=== PATIENT | female | born 1940 | race African-American/Black ===

== ENCOUNTER 2017-03-15 15:09 | Observation (INO) | payer MEDICARE, MEDICAID ==
[2017-03-15 15:48] LABS: #Basophils 0.1 thou/uL (0.0-0.2); #Eosinphils 0.1 thou/uL (0.0-0.7); #Lymphocytes 3.3 thou/uL (1.20-3.40); #Monocytes 0.7 thou/uL (0.11-0.59); #Neutrophils 5.3 thou/uL (1.40-6.50); %Eosinophils 1.5 % (0.0-10.0); %Lymphocytes 34.2 % (21.0-51.0); %Monocytes 7.4 % (0.0-10.0); Hematocrit 41.7 % (36.0-47.0); Mean Platelet Volume 7.8 fL (7.4-10.4); Red Blood Cell (RBC) Count 5.05 mill/uL (4.20-5.40); White Blood Cell (WBC) Count 9.5 thou/uL (4.8-10.8)
[2017-03-15 16:11] LABS: ALT (SGPT) 16 U/L (8-55); AST (SGOT) 20 U/L (5-34); Alkaline Phosphatase 85 U/L (40-150); Anion Gap 12 mmol/L (10-20); BUN (Urea Nitrogen) 19 mg/dL (9.8-20.1); Bilirubin, Total 0.5 mg/dL (0.2-1.2); CK (CPK) 133 U/L (29-168); Calc. Creatinine Clearance 0 mL/min (70-130); Calcium 9.7 mg/dL (7.8-10.44); Carbon Dioxide 25 mmol/L (23-31); Chloride 103 mmol/L (98-107); Estimated GFR-MDRD 79; Globulin 3.7 g/dL (2.4-3.5); Protein, Total 7.6 g/dL (6.0-8.3)
[2017-03-15] MEDS ORDERED: Nitroglycerin 0.4 MG TAB (25 Tab Bottle) ONE (16:11)
[2017-03-15 16:14] LABS: Troponin I Less than 0.010 ng/mL (< 0.028)
--- NOTE | 2017-03-15 16:24 | RAD ---
AP CHEST: Indication: Chronic left hip pain and chest pain. FINDINGS: There is stable elevation of the right hemidiaphragm. There is stable cardiomegaly. No confluent air space opacity or pleural effusion noted. Pulmonary vasculature is within normal limits. No acute oss eous abnormality is evident. IMPRESSION: No acute cardiopulmonary abnormality. Stable changes as above. POS: [facility]
[2017-03-15] MEDS ORDERED: ISOVUE-370 76%-LOCM 1 ML ONE (16:40)
[2017-03-15] MEDS ORDERED: Mag-Al 1200 mg/1200 mg/30 ML UDCUP PO PRN (16:43)
[2017-03-15] MEDS ORDERED: Ondansetron HCl/PF 4 MG/2 ML Vial ONE (16:43)
[2017-03-15] MEDS ORDERED: Nitroglycerin 0.4 MG TAB (25 Tab Bottle) SL PRN (16:43)
[2017-03-15] MEDS ORDERED: Ondansetron HCl/PF 4 MG/2 ML Vial IVP PRN (16:43)
[2017-03-15] MEDS ORDERED: Milk Of Magnesia 30 ML UDCUP PO PRN (16:43)
[2017-03-15] MEDS ORDERED: Bisacodyl 5 MG TAB PO PRN ×2 (16:43)
[2017-03-15] MEDS ORDERED: HYDROcodone/Acetaminophen 5/325 mg Tablet PO PRN (16:43)
[2017-03-15] MEDS ORDERED: cloNIDine HCl 0.1 MG TAB PO PRN (16:43)
[2017-03-15] MEDS ORDERED: Loratadine 10 MG TAB PO PRN (16:43)
[2017-03-15] MEDS ORDERED: Diabetic Tussin 200 MG/10 ML UDCUP PO PRN (16:43)
[2017-03-15] MEDS ORDERED: Benzonatate 100 MG CAP PO PRN (16:43)
[2017-03-15] MEDS ORDERED: Acetaminophen 325 MG TAB PO PRN (16:43)
[2017-03-15] MEDS ORDERED: Metoprolol Tartrate 25 MG TAB ONE (16:43)
[2017-03-15] MEDS ORDERED: Calcium Carbonate 500 MG ChewTAB PO PRN (16:43)
[2017-03-15] MEDS ORDERED: Senokot 8.6 MG TAB PO PRN ×2 (16:43)
[2017-03-15] MEDS ORDERED: Cyclobenzaprine 10 MG TAB PO PRN (18:11)
[2017-03-15] MEDS ORDERED: Aspirin 325 MG TAB PO SCH (18:30)
--- NOTE | 2017-03-15 19:03 | HP ---
PRIMARY CARE PHYSICIAN: Vanesa Espitia MD CHIEF COMPLAINT: Chest pain and lower left leg pain. HISTORY OF PRESENT ILLNESS: Ms. Weber is a 77-year-old -Spanish female with past medical history of hypertension, who presented to the ER with the above-mentioned complaints. History is ma inly obtained with the patient herself. ER physician called me to admit her for evaluation of chest pain, but the patient's main complaint is that of worsening of chronic left leg pain. According to Ms. Weber, she has severe worsening of her left leg pain today and felt that the pain is starting in her lower back going down her leg associated with left leg weakness. She also repor gia that this pain seemed to be going up on the left side of her chest under her left arm. She pres ented to the ER with this symptoms. A chest x-ray was done, which was unremarkable. Cardiac enzyme s were normal. The patient reports that she has been told by Orthopedics, Dr. Duque about 2 weeks ago that she brito s \\\\"bone on bone\\\\" in the hip and needs hip replacement. She is scheduled for hip replacement on the left side in June. She has had a hip x-ray done about 2 weeks ago. She has been taking marquez xicam and tramadol to some benefit, but the pain got really worse today. She denies any other recen t illnesses. She denies any fever, chills, or cough. She denies any nausea, vomiting, diarrhea, or abdominal pain. With regards to her chest pain, she denies any shortness of breath or palpitations . She is currently chest pain free. She has not tried any medications to help with the pain, speci fically her chest pain. She had normal cardiac stress test and transthoracic echocardiogram done in 10/2014. She is now being admitted for a variety of symptoms, but her main concern at this time is her left hip pain. PAST MEDICAL HISTORY: 1. Hypertension. 2. Gout. 3. Restrictive lung disease. 4. Osteoarthritis. 5. Spinal stenosis. 6. Obesity. 7. Diverticulosis. PAST SURGICAL HISTORY: Cholecystectomy. ALLERGIES: No known medication allergies. CURRENT MEDICATIONS: The patient recently finished a course of prednisone tapering dose. Otherwise , she takes metoprolol, Norvasc, valsartan, and meloxicam. Medication dosages need to be confirmed. FAMILY HISTORY: Significant for diabetes mellitus. SOCIAL HISTORY: She is and has 2 children. She is retired and has no history of drug, tob acco or alcohol abuse. Lives with her family. REVIEW OF SYSTEMS: The following complete review of systems was negative, unless otherwise mentione d in the HPI or below: Constitutional: Weight loss or gain, ability to conduct usual activities. Skin: Rash, itching. Eyes: Double vision, pain. ENT/Mouth: Nose bleeding, neck stiffness, pain, tenderness. Cardiovascular: Palpitations, dyspnea on exertion, orthopnea. Respiratory: Shortness of breath, wheezing, cough, hemoptysis, fever or night sweats. Gastrointestinal: Poor appetite, abdominal pain, heartburn, nausea, vomiting, constipation, or diar rios. Genitourinary: Urgency, frequency, dysuria, nocturia. Musculoskeletal: Pain, swelling. Neurologic/Psychiatric: Anxiety, depression. Allergy/Immunologic: Skin rash, bleeding tendency. It is negative except for those mentioned in the history and physical. LABORATORY EXAMINATION: Her CBC is unremarkable. Serum chemistry showed D-dimer elevated at 0.73, otherwise unremarkable. Cardiac enzymes normal. Chest x-ray by my review has no evidence of acute cardiopulmonary abnormality. A 12-lead EKG shows no acute ST or T-wave changes. PHYSICAL EXAMINATION: VITAL SIGNS: She is hemodynamically stable. Blood pressure 144/74, saturating 95% on room air, and heart rate 74. GENERAL: No acute distress, awake, alert, and oriented x3. She is pretty uncomfortable and winces in pain and is clutching her left leg mainly on the thigh laterally. Otherwise, no acute distress. HEENT: Mucous membrane is moist and pink. No oropharyngeal exudate or erythema. Head is normoceph alic and atraumatic. Pupils are equal, reactive to light and accommodation. Extraocular movements are intact. NECK: Supple without any JVD or bruit. CHEST: Clear to auscultation without any wheezing, rales or rhonchi. CARDIOVASCULAR: Regular rate and rhythm is regular without any murmur, rubs or gallops. ABDOMEN: Soft, nontender, and nondistended, positive bowel sounds. EXTREMITIES: Free of any cyanosis, clubbing, or edema. NEUROLOGIC: Nonfocal. She is able to lift her left leg with passive extension without any hip or b ack pain. Sensation is intact. Muscle strength is at least 3/5 in left leg. SKIN: Free of any rashes or bruises. Feels warm and dry to touch. IMPRESSION AND PLAN: 1. Chest pain. I highly doubt that the patient had chest pain per se. She had some referred pain going to a side of her abdomen under her left arm. However, given her history of hypertension, she will be admitted on telemetry unit. We will continue to do serial cardiac enzymes. Given somewhat elevated D-dimer: We will do a CT angio to rule out pulmonary embolism, but the clinical probabilit y for the same is very low at this time. She will be treated with daily aspirin and we will restart her home medications of beta eloise and ARBs. 2. Left leg pain. This is rather chronic for the patient. She will continue to follow with Orthop edics as an outpatient for hip replacement. We will obtain an MRI of the thoracic and lumbar spine to rule out spinal cord compression. Most likely her symptoms are related to radiculopathy. I will start on muscle relaxant, IV narcotics or sedatives at this time. 3. Hypertension, currently well controlled. We will resume her home medications once the dosages a re confirmed. 4. Restrictive lung disease. Continue nebulizers as needed. She is currently asymptomatic with re gards to that. 5. Osteoarthritis. I have instructed her to stop taking the meloxicam as she has been using quite a lot of it. She will continue to take tramadol at home and follow up with her primary care jass lobato. 6. Deep venous thrombosis and gastrointestinal prophylaxis. DISPOSITION: The patient will be admitted to telemetry unit for chest pain workup. Estimated lengt h of stay at this time is less than 2 midnights. Further management will depend upon her clinical c ourse.
[2017-03-15 20:09] LABS: Troponin I Less than 0.010 ng/mL (< 0.028)
--- NOTE | 2017-03-15 22:04 | CT ---
CT ANGIO CHEST INCLUDING 3D RENDERIN03/15/17 HISTORY: 77-year-old female with chest pain primarily left sided radiating to left breast with shortness of b reath as well as elevated D-dimer. There is cardiomegaly. Three vessel coronary artery calcific changes are noted. No pleural effusion or pericardial effusion. There is moderate motion artifact with suboptimal imaging of the more perip heral pulmonary arteries, particularly in the lower lung zones. No significant CT evidence for acute PE. The visualized upper abdomen is unremarkable. There is some bilateral vascular congestion as we ll as some minimal interstitial change and a somewhat mosaic appearance to the lungs. There may well be some component of mild interstitial edema. IMPRESSION: Cardiomegaly with vascular congestion and a somewhat mosaic appearance of the lungs with possible mi ld edema. No significant CT evidence for acute pulmonary embolism. Three vessel coronary artery calc ific disease. The distal branches of the pulmonary arteries, particularly in the mid and lower porti ons of the lung are less than optimally imaged because of motion artifact. POS: [facility]
[2017-03-15] MEDS: traMADol HCl 50 MG TAB PO PRN (22:43)
[2017-03-15 22:48] VITALS: BMI 38.5
[2017-03-15 23:03] LABS: Troponin I Less than 0.010 ng/mL (< 0.028)
[2017-03-16 05:18] LABS: #Basophils 0.1 thou/uL (0.0-0.2); #Eosinphils 0.2 thou/uL (0.0-0.7); #Lymphocytes 3.6 thou/uL (1.20-3.40); #Monocytes 0.6 thou/uL (0.11-0.59); #Neutrophils 5.1 thou/uL (1.40-6.50); %Basophils 0.9 % (0.0-1.0); %Lymphocytes 37.7 % (21.0-51.0); %Monocytes 5.9 % (0.0-10.0); Hematocrit 40.7 % (36.0-47.0); Mean Platelet Volume 7.7 fL (7.4-10.4); Red Blood Cell (RBC) Count 4.89 mill/uL (4.20-5.40); White Blood Cell (WBC) Count 9.4 thou/uL (4.8-10.8)
[2017-03-16 05:41] LABS: Anion Gap 11 mmol/L (10-20); BUN (Urea Nitrogen) 16 mg/dL (9.8-20.1); Calc. Creatinine Clearance 86 mL/min (70-130); Calcium 9.2 mg/dL (7.8-10.44); Carbon Dioxide 28 mmol/L (23-31); Chloride 102 mmol/L (98-107); Estimated GFR-MDRD 76
[2017-03-16 07:50] LABS: Bilirubin Negative (Negative); Blood, Urine Negative (Negative); Glucose, Urine (Dipstick) Negative (Negative); Ketone, Urine Negative (Negative); Nitrite Negative (Negative); Protein, Urine (Dipstick) Negative (Neg-Trace); Urobilinogen 0.2 mg/dL (0.2-1.0)
[2017-03-16 07:53] LABS: Bacteria/HPF Rare-Few HPF (None Seen); Hyaline Casts/LPF 0-3 HYALINE CAST LPF (0-3 Hyaline); RBC/HPF 0-3 HPF (0-3); Squamous Epithelial 0-3 HPF (0-3); WBC/HPF 0-3 HPF (0-3)
[2017-03-16] MEDS ORDERED: Aspirin 325 MG TAB PO SCH ×2 (08:00→09:00)
[2017-03-16] MEDS ORDERED: Non-Formulary Item 1 EACH (Losartan/Hydrochlorothiazide [Losartan-Hctz 100-12.5 Mg Tab] 1 PO SCH (09:00)
[2017-03-16] MEDS ORDERED: Hydrochlorothiazide 25 MG TAB PO SCH (09:00)
[2017-03-16] MEDS ORDERED: predniSONE 5 MG TAB PO SCH (09:00)
[2017-03-16] MEDS ORDERED: Enoxaparin Sodium 40 MG/0.4 ML SYRINGE SC SCH (09:00)
[2017-03-16] MEDS ORDERED: Losartan Potassium 25 MG TAB PO SCH (09:00)
[2017-03-16] MEDS ORDERED: FLU VACC TS2017-18 (>65YR) 0.5 ML SYRINGE IM ONE (09:00)
[2017-03-16] MEDS ORDERED: Non-Formulary Item 1 EACH (Prednisone [Prednisone] 5 MG) PO SCH (09:00)
[2017-03-16] MEDS: traMADol HCl 50 MG TAB PO PRN (10:48)
[2017-03-16 12:59] VITALS: TEMP 98.2
--- NOTE | 2017-03-16 13:34 | MRI ---
MRI OF THE LUMBAR SPINE WITHOUT IV CONTRAST: INDICATIONS: Left leg pain and weakness. COMPARISON: No radiographic or MR comparisons are available. TECHNIQUE: Multiplanar, multisequence MR images were obtained of the lumbar spine without IV contrast. FINDINGS: Bone marrow signal intensity appears within normal limits. There is grade 1 anterolisthesis of the expected L5 on S1 and L4 on L5 levels. The conus seems to terminate at approximately T12-L1. There is slight grade 1 anterolisthesis also present at L3 on L4. The visualized retroperitoneum and prevertebral soft tissues appear within normal limits. L5-S1: There is a broad-based bulge with severe facet joint degenerative change and loss of disk sp vernell height inducing moderate to severe bilateral neural foraminal narrowing. There is also mild venecia tral canal narrowing at this level. A broad-based bulge and facet hypertrophy does induce moderate to severe bilateral lateral recess narrowing with potential for impingement of the traversing S1 ner ve roots. L4-L5: There is severe facet joint degenerative change, grade 1 anterolisthesis, a broad-based pseu do bulge, and ligamentum flavum hypertrophy inducing severe central canal narrowing with moderate to severe neural foraminal narrowing, right greater than left. L3-L4: There is severe facet joint degenerative change, a broad-based disk bulge, and ligamentum fl avum hypertrophy inducing moderate central canal narrowing with moderate to severe right and moderat e left neural foraminal narrowing. L2-L3: There is a broad-based bulge with severe bilateral facet joint degenerative change producing mild central canal narrowing with moderate to severe right and moderate left neural foraminal narro wing. L1-L2: There is a broad-based bulge and facet joint degenerative change inducing mild bilateral waldo ral foraminal narrowing. T12-L1: There is a broad-based disk osteophyte complex causing mild bilateral neural foraminal narr owing. IMPRESSION: Severe multilevel spondylosis of the lumbar spine with multilevel central canal and neural foraminal narrowing, as detailed above. POS: [facility]
--- NOTE | 2017-03-16 13:43 | MRI ---
MRI OF THE THORACIC SPINE WITHOUT CONTRAST: Date: 03/16/17 INDICATION: Left leg pain and weakness. COMPARISON: Prior CT of the thorax dated 03/15/17. FINDINGS: There is a bony hemangioma within a T4 vertebral level. There are Modic end plate degenerative kwong es seen at T12-L1. No acute fracture or subluxation is evident. There are mild multilevel disc bulge s. There is a small broad based disc bulge at T1-T2, T2-T3, and T3-T4. Mild disc bulges are seen at T5-6, T6-7, T8-9, and T9-T10. Mild side bulges are seen at T11-T12 and T10-T11. No appreciable centr al canal or neural foraminal narrowing is evident. IMPRESSION: Multilevel spondylosis of the thoracic spine without appreciable central canal or neural foraminal n arrowing. POS: [facility]
[2017-03-16 14:06] VITALS: BP 128/60
--- NOTE | 2017-03-16 16:10 | DIS ---
DATE OF ADMISSION: 03/15/2017 DATE OF DISCHARGE: 03/16/2017 CONDITION AT THE TIME OF DISCHARGE: Stable and improved. PRIMARY CARE PHYSICIAN: Vanesa Espitia MD DISCHARGE DIAGNOSES: 1. Lumbar radiculopathy along with left hip osteoarthritis leading to acute worsening of chronic le ft hip pain. 2. Radiation of the pain to left side of the chest, acute coronary syndrome ruled out. 3. History of hypertension. PROCEDURES DONE IN THE HOSPITAL: Include, 1. CT angio of the thorax, which is negative for any pulmonary embolism. She does not have any pat dence of infiltrate or effusion nor edema. 2. Lumbar and thoracic spinal MRIs. Her lumbar spinal MRI shows severe degenerative changes withou t any significant spinal cord compression. She has multilevel central canal neuroforaminal narrowin g and in the thoracic spinal MRI, the changes are less pronounced. DISCHARGE MEDICATIONS: Resume home medications as follows: Prednisone 5 mg daily, losartan/hydroch lorothiazide 100/12.5 mg daily, isosorbide 30 mg daily, tramadol as needed, aspirin 81 mg daily, aml odipine 10 mg daily, and meloxicam as needed. I have encouraged the patient not to overuse the marquez xicam and discuss this further with her primary care physician. ADMISSION HISTORY: Ms. Weber is a pleasant 77-year-old -English female with past medical history of hypertension and severe left hip osteoarthritis, who was scheduled for hip replacement in June, presented to the ER with acute worsening of her left hip pain and inability to move it and walk around freely. She had some radiation of this pain to the left side of her chest laterally an d for this reason, I was called for admission to rule out ACS. She was hemodynamically stable at th e time of presentation and was admitted under observation to the telemetry unit for the same reason. Please see admission history and physical for further details. Upon presentation, her D-dimer was elevated to 0.73. For this reason, she underwent a CT angio to rule out pulmonary embolism and it was negative for same. HOSPITAL COURSE: The patient was seen by physical therapist and had improvement in her symptoms wit hout any significant intervention. Lumbar and thoracic spinal MRI was done to rule out spinal cord compression or nerve compression and was negative for same. She does have multilevel neuroforaminal narrowing, which can be exacerbating some of her left leg pain. At this time, she is encouraged to follow up with her primary care physician and her orthopedic physician for continued management of the same. She was seen and examined prior to discharge. PHYSICAL EXAMINATION: VITAL SIGNS: Today include, temperature 98.2, pulse of 70, respirations 18, saturating 93% on room air, and blood pressure 165/72. GENERAL: No acute distress, awake, alert, oriented x3. CHEST: Clear to auscultation without any wheezing, rales, or rhonchi. Rate and rhythm is regular w ithout any murmur, rubs, or gallops. ABDOMEN: Soft, nontender, and nondistended. NEUROLOGIC: Nonfocal. The patient was able to walk around with physical therapist with the help of a walker. LABORATORY EXAMINATION: Cardiac enzymes, troponin less than 0.010 x3. Lipid panel within normal li mits. Serum chemistries unremarkable. CBC within normal limits. Urinalysis has no leukocyte daisy ase, wbc, rbc, or bacteria. At this time, she is hemodynamically stable and will be discharged back to home under the care of he r primary care physician. She is encouraged to make followup appointment.
== END 2017-03-16 16:00 | disposition home or self-care (01) ==
LOC: ERS 15:09 → 2NO 19:00
PROVIDERS: ADMIT Internal Medicine; ATTEND Internal Medicine
DX: M16.12 Unilateral primary osteoarthritis, left hip (principal); G89.29 Other chronic pain; R07.89 Other chest pain; M54.16 Radiculopathy, lumbar region; I10 Essential (primary) hypertension; M10.9 Gout, unspecified; J98.4 Other disorders of lung; E66.9 Obesity, unspecified; Z90.49 Acquired absence of other specified parts of digestive tract; Z79.82 Long term (current) use of aspirin; Z79.52 Long term (current) use of systemic steroids; Z79.899 Other long term (current) drug therapy
CPT/HCPCS: 71010; 71275; 72146; 72148; 80048; 80053; 80061; 81001; 82550; 82553; 84484 ×2; 85025 ×2; 85379; 93005; 94760; 96372; 96374; 96375; 97116; 97139 ×2; 97530; 99285; G0008; G0378 ×2; G8978; G8979; G8987; G8988; Q2036; 36415; 90471; 90682; J1650; J2270; J2405

== ENCOUNTER 2017-06-27 21:43 | Emergency (ER) | payer MEDICARE, OTHER ==
[2017-06-27] MEDS ORDERED: Acetaminophen 325 MG TAB ONE (22:47)
--- NOTE | 2017-06-28 07:19 | ULT ---
LEFT LOWER EXTREMITY VENOUS DOPPLER WITH SPECTRAL ANALYSIS AND COLOR FLOW EVALUATION: 06/27/2017 HISTORY: Left lower extremity pain and edema. History of left hip surgery one week ago. FINDINGS: Alegre scale, color flow, Doppler evaluation, spectral analysis of the left lower extremity venous stru ctures is performed with 2-D imaging. The left lower extremity common femoral, superficial femoral, popliteal, posterior tibial, and most p roximal greater saphenous and profunda femoral veins are imaged. There is normal lumen compressibility, flow, and augmentation in the visualized deep venous structure s of the left lower extremity. There is mild subcutaneous edema involving the left lower extremity. IMPRESSION: 1. No evidence of a DVT involving the visualized deep venous structures, left lower extremity. 2. Mild subcutaneous edema. POS: [facility]
== END 2017-06-28 00:56 | disposition home or self-care (01) ==
LOC: ERS 21:43
DX: M96.840 Postprocedural hematoma of a musculoskeletal structure following a musculoskeletal system procedure (principal); E78.5 Hyperlipidemia, unspecified; K21.9 Gastro-esophageal reflux disease without esophagitis; I10 Essential (primary) hypertension; I49.9 Cardiac arrhythmia, unspecified; M10.9 Gout, unspecified; M19.90 Unspecified osteoarthritis, unspecified site; Z79.899 Other long term (current) drug therapy; Z79.891 Long term (current) use of opiate analgesic; Z79.1 Long term (current) use of non-steroidal anti-inflammatories (NSAID)

== ENCOUNTER 2017-11-15 09:42 | Emergency (ER) | payer MEDICARE, OTHER ==
[2017-11-15 10:17] LABS: #Basophils 0.1 thou/uL (0.0-0.2); #Eosinphils 0.1 thou/uL (0.0-0.7); #Lymphocytes 2.9 thou/uL (1.20-3.40); #Monocytes 0.5 thou/uL (0.11-0.59); #Neutrophils 3.7 thou/uL (1.40-6.50); %Basophils 0.8 % (0.0-1.0); %Eosinophils 1.6 % (0.0-10.0); %Lymphocytes 40.2 % (21.0-51.0); %Monocytes 6.3 % (0.0-10.0); Hemoglobin 13.2 g/dL (12.0-16.0); Mean Corpuscular HGB CONC 31.5 g/dL (32.0-36.0); Mean Corpuscular Hemoglobin 24.7 pg (27.0-31.0); Mean Corpuscular Volume 78.3 fl (81.0-99.0); Mean Platelet Volume 8.8 fL (7.4-10.4); Platelet Count 257 thou/uL (130-400); RBC Distribution Width 17.3 % (11.5-14.5); Red Blood Cell (RBC) Count 5.33 mill/uL (4.20-5.40); White Blood Cell (WBC) Count 7.3 thou/uL (4.8-10.8)
[2017-11-15] MEDS ORDERED: Ketorolac Tromethamine 60 MG/2 ML VIAL ONE (10:27)
[2017-11-15 10:38] LABS: Bilirubin Negative (Negative); Blood, Urine Negative (Negative); Clarity CLEAR (Clear); Glucose, Urine (Dipstick) Negative (Negative); Leukocyte Trace (Negative); Nitrite Negative (Negative); Protein, Urine (Dipstick) Negative (Neg-Trace); Specific Gravity, Urine 1.011 (1.002-1.036); Urobilinogen 0.2 mg/dL (0.2-1.0); pH, Urine 7.5 (5.0-9.0)
[2017-11-15 10:39] LABS: ALT (SGPT) 13 U/L (8-55); AST (SGOT) 22 U/L (5-34); Albumin 4.1 g/dL (3.4-4.8); Alkaline Phosphatase 103 U/L (40-150); Anion Gap 12 mmol/L (10-20); BUN (Urea Nitrogen) 13 mg/dL (9.8-20.1); Bilirubin, Total 0.9 mg/dL (0.2-1.2); Calc. Creatinine Clearance 0 mL/min (70-130); Calcium 9.7 mg/dL (7.8-10.44); Carbon Dioxide 24 mmol/L (23-31); Chloride 103 mmol/L (98-107); Estimated GFR-MDRD 83; Globulin 4.2 g/dL (2.4-3.5); Glucose 109 mg/dL (83-110); Lipase 15 U/L (8-78); Potassium 3.8 mmol/L (3.5-5.1); Protein, Total 8.3 g/dL (6.0-8.3); Sodium 135 mmol/L (136-145)
[2017-11-15 10:40] LABS: Bacteria/HPF Rare-Few HPF (None Seen); Hyaline Casts/LPF 0-3 HYALINE CAST LPF (0-3 Hyaline); Pathc Cast-AUWi Flag 0.29 (0-2.49); RBC/HPF 0-3 HPF (0-3); Squamous Epithelial 0-3 HPF (0-3); WBC/HPF 0-3 HPF (0-3)
--- NOTE | 2017-11-15 10:53 | RAD ---
LEFT HIP TWO VIEWS: HISTORY: Left hip pain. FINDINGS: A total hip prosthesis is in place. No perihardware lucency. Heterotopic ossification lies just sup erior-lateral to the femoral neck prosthesis. IMPRESSION: Left hip prosthesis without evidence of hardware complication. POS: [facility]
--- NOTE | 2017-11-15 10:55 | RAD ---
SUPINE CHEST AND RIGHT RIBS FOUR VIEWS: HISTORY: Right-sided rib pain. FINDINGS: Heart size is difficult to assess because of the supine technique. The mediastinal structures are un remarkable. The lungs are clear of infiltrates. No rib fractures are identified. no lytic or blast ic bony change. IMPRESSION: Unremarkable right ribs. POS: [facility]
== END 2017-11-15 11:27 | disposition home or self-care (01) ==
LOC: ERS 09:42
DX: S29.012A Strain of muscle and tendon of back wall of thorax, initial encounter (principal); I49.9 Cardiac arrhythmia, unspecified; E78.5 Hyperlipidemia, unspecified; K21.9 Gastro-esophageal reflux disease without esophagitis; I10 Essential (primary) hypertension; M10.9 Gout, unspecified; M19.90 Unspecified osteoarthritis, unspecified site; X58.XXXA Exposure to other specified factors, initial encounter
CPT/HCPCS: 36415; 80053; 81003; 81015; 83690; 85025; 87086; 96372; J1885

== ENCOUNTER 2018-11-25 13:47 | Emergency (ER) | payer MEDICARE, OTHER ==
[2018-11-25 14:23] LABS: #Basophils 0.1 thou/uL (0.0-0.2); #Eosinphils 0.1 thou/uL (0.0-0.7); #Monocytes 0.6 thou/uL (0.11-0.59); #Neutrophils 3.7 thou/uL (1.40-6.50); %Basophils 0.8 % (0.0-1.0); %Eosinophils 1.5 % (0.0-10.0); %Monocytes 7.5 % (0.0-10.0); %Neutrophils 50.3 % (42.0-75.0); Hemoglobin 12.9 g/dL (12.0-16.0); Mean Corpuscular HGB CONC 32.2 g/dL (32.0-36.0); Mean Corpuscular Volume 80.6 fL (78.0-98.0); Mean Platelet Volume 8.5 fL (7.4-10.4); Platelet Count 198 thou/uL (130-400); RBC Distribution Width 15.7 % (11.5-14.5); Red Blood Cell (RBC) Count 4.97 mill/uL (4.20-5.40); White Blood Cell (WBC) Count 7.4 thou/uL (4.8-10.8)
[2018-11-25 14:44] LABS: ALT (SGPT) 15 U/L (8-55); AST (SGOT) 22 U/L (5-34); Alkaline Phosphatase 76 U/L (40-150); Anion Gap 14 mmol/L (10-20); BUN (Urea Nitrogen) 21 mg/dL (9.8-20.1); Bilirubin, Total 0.6 mg/dL (0.2-1.2); Calc. Creatinine Clearance 0 mL/min (70-130); Calcium 9.5 mg/dL (7.8-10.44); Carbon Dioxide 23 mmol/L (23-31); Chloride 103 mmol/L (98-107); Estimated GFR-MDRD 70; Globulin 3.8 g/dL (2.4-3.5); Glucose 100 mg/dL (83-110); Lipase 20 U/L (8-78); Potassium 3.8 mmol/L (3.5-5.1); Protein, Total 7.8 g/dL (6.0-8.3); Sodium 136 mmol/L (136-145)
== END 2018-11-25 15:12 | disposition home or self-care (01) ==
LOC: ERS 13:47
DX: R10.9 Unspecified abdominal pain (principal); E78.5 Hyperlipidemia, unspecified; K21.9 Gastro-esophageal reflux disease without esophagitis; I10 Essential (primary) hypertension; M10.9 Gout, unspecified; Z79.899 Other long term (current) drug therapy; Z79.82 Long term (current) use of aspirin
CPT/HCPCS: 36415; 80053; 83690; 85025

== ENCOUNTER 2019-02-22 13:17 | Outpatient (CLI) | payer MEDICARE, OTHER ==
--- NOTE | 2019-02-22 13:33 | RAD ---
EXAM: Two views chest PROVIDED CLINICAL HISTORY: Dyspnea COMPARISON: 07/30/2014 and 11/15/2017 FINDINGS: Cardiac silhouette and pulmonary vasculature are within normal limits. Again noted is eventration of the anterior right hemidiaphragm similar to the prior exam. Lungs are clear. Degenerative changes are again seen in the spine. Vascular calcifications are seen in the thoracic aorta. IMPRESSION: Stable chest without evidence of an acute cardiopulmonary process..
== END 2019-02-22 13:18 | disposition home or self-care (01) ==
LOC: RAD 13:17
PROVIDERS: ATTEND Internal Medicine Pulmonary Disease
DX: R06.00 Dyspnea, unspecified (principal)
CPT/HCPCS: 71046

== ENCOUNTER 2019-04-17 09:28 | Outpatient (CLI) | payer MEDICARE, OTHER ==
--- NOTE | 2019-04-17 10:43 | RAD ---
RIGHT WRIST THREE VIEWS: HISTORY: Wrist pain. FINDINGS: There is severe arthritic change of the wrist and evidence of carpal instability. There are marked de generative changes of the triscaphe and first carpometacarpal joint space. There is also severe radia l carpal joint space narrowing and invagination of the capitate between the scaphoid and lunate, comp atible with an underlying scapholunate ligament tear. The bones are demineralized. IMPRESSION: Severe arthritic changes of the wrist, as described above. POS: [facility]
--- NOTE | 2019-04-17 10:44 | RAD ---
CERVICAL SPINE SERIES THREE VIEWS: HISTORY: Neck pain. No history of injury. FINDINGS: Vertebral bodies are normal in height. There is moderate disk narrowing at C3-C4 and C4-C5 with more pronounced disk narrowing at C5-C6 and C6-C7. There are moderate degenerative facet changes. There is a reversal to the normal cervical curve. Carotid bulb calcifications are noted. IMPRESSION: Severe osteoarthritic changes of the cervical spine. POS: [facility]
--- NOTE | 2019-04-17 10:49 | RAD ---
LEFT WRIST 3 VIEWS: Date: 04/17/19 HISTORY: Wrist pain. FINDINGS: There are severe arthritic changes at the first carpometacarpal joint space. Deformity to the trapezi um is seen and arthritic changes of the triscaphe joint are present. There is also suggestion of some slight widening to the scapholunate joint raising the possibility of underlying scapholunate ligamen t injury. IMPRESSION: Severe arthritic changes of the left wrist. POS: [facility]
== END 2019-04-17 09:29 | disposition home or self-care (01) ==
LOC: BICRAD 09:28
PROVIDERS: ATTEND Family Medicine
DX: S63.003A Unspecified subluxation of unspecified wrist and hand, initial encounter (principal); M79.641 Pain in right hand; M54.2 Cervicalgia; M79.642 Pain in left hand; M19.032 Primary osteoarthritis, left wrist; M19.031 Primary osteoarthritis, right wrist; M47.812 Spondylosis without myelopathy or radiculopathy, cervical region
CPT/HCPCS: 36415; 72040; 80053; 80061; 81003; 81015; 84443; 85025

== ENCOUNTER 2019-05-09 13:02 | Outpatient (CLI) | payer MEDICARE, MEDICAID ==
--- NOTE | 2019-05-09 14:07 | ULT ---
ULTRASOUND DOPPLER DUPLEX CAROTID: DATE: 05/09/2019. HISTORY: Bilateral carotid bruits in an 79-year-old female. TECHNIQUE: Alegre scale, color flow, and spectral analysis, of major arteries of neck. FINDINGS: There is poor Doppler signal of the mid and distal portions of bilateral internal carotid arteries be cause of their deep, posterior courses in the neck. There is moderate-sized calcified atheromatous p laque at the origin of the left internal carotid causing shadowing, partially obscuring the lumen. Highest peak systolic velocities in the proximal internal carotid arteries are 75 cm/s on the right a nd 55 cm/s on the left. ICA/CCA ratios are 0.9 on the right and 0.7 on the left. Vertebral artery flow is antegrade bilaterally. IMPRESSION: 1. Moderate atherosclerotic plaque at the origin of the left internal carotid artery. 2. No evidence of hemodynamically significant stenosis. POS: [facility]
--- NOTE | 2019-05-09 14:46 | MRI ---
MRI Cervical spine without contrast: HISTORY: Neck Pain COMPARISON: None FINDINGS: The craniocervical junction is unremarkable. There is a pannus formation seen at the articulation of the odontoid with the anterior arch of C1. Paravertebral soft tissues have a normal appearance and normal signal intensity. Multilevel degenerative changes are seen throughout the cervical spine. C1-2:No significant stenosis. C2-3: There is a mild disc osteophyte complex with facet degenerative changes greater on the right. T here is slight effacement of the ventral subarachnoid space. The left neural foramen is patent, but there is [id number] right-sided neural foraminal narrowing. C3-4: There is trace anterolisthesis of C3 on C4. A broad-based disc osteophyte complex is present wi th facet hypertrophic changes as well as mild uncinate process hypertrophy. There is loss of height of the intervertebral disc. There is generalized narrowing of the central spinal canal with flattenin g of the anterior aspect of the spinal cord. Normal signal intensity is present in the spinal cord at this level. Moderate to severe bilateral neural foraminal narrowing is present. C4-5: There is loss of intervertebral disc height. Broad-based disc osteophyte complex and facet dege nerative changes are present. There is fluid signal intensity seen within the right-sided facet joint at this level with mild increased signal intensity within the facets on fluid sensitive sequenc e. These findings are most likely related to prominent facet degenerative changes. While infectious process cannot be entirely excluded, these findings are felt to most likely be secondary to the promi nent degenerative changes at this level. There is mild narrowing of the central spinal canal. Mild right and [id number] left-sided neural foraminal narrowing is present. C5-6: There is loss of intervertebral disc height. There is a broad-based disc osteophyte complex pre sent. There is generalized narrowing of the central spinal canal with flattening of the anterior aspect of the spinal cord. Moderate left and [id number] right-sided neural foraminal narrowing are present. C6-7: There is loss of intervertebral disc height. There is a broad-based disc osteophyte complex pre sent. There is generalized narrowing of the central spinal canal with slight flattening of the anterior aspect of the spinal cord at this level. There is mild bilateral neural foraminal narrowing. C7-T1: There is no disc bulge or disc herniation. Central spinal canal and neural foramina are patent . T1-T2 and T2-3 levels: There is a mild disc osteophyte complex at these levels which narrows the vent ral subarachnoid space. Based on sagittal imaging, there is no significant neural foraminal narrowing present. IMPRESSION: 1. Multilevel degenerative changes with varying degrees of neural foraminal narrowing at multiple lev els of the cervical spine 2. Fluid signal intensity seen within the right-sided facet joints at the C4-5 level with mild bone m arrow edema in the adjacent facets and mild increased signal intensity in the adjacent soft tissues. These findings are most likely attributable to prominent facet degenerative changes and seco ndary inflammatory changes as opposed to infectious process. 3. Trace anterolisthesis of C3 on C4 secondary to degenerative changes.
== END 2019-05-09 13:03 | disposition home or self-care (01) ==
LOC: BICULT 13:02
PROVIDERS: ATTEND Family Medicine
DX: M54.41 Lumbago with sciatica, right side (principal); M54.2 Cervicalgia; R09.89 Other specified symptoms and signs involving the circulatory and respiratory systems; M47.812 Spondylosis without myelopathy or radiculopathy, cervical region; M48.02 Spinal stenosis, cervical region; R60.0 Localized edema; M43.12 Spondylolisthesis, cervical region; I65.22 Occlusion and stenosis of left carotid artery
CPT/HCPCS: 72141; 72148; 93880

== ENCOUNTER 2020-08-19 09:19 | Outpatient (CLI) | payer MEDICARE, MEDICAID | END 2020-08-19 09:20 | disposition home or self-care (01) | LOC: BICRAD 09:19 | PROVIDERS: ATTEND Family Medicine | DX: R06.02 Shortness of breath (principal); M16.11 Unilateral primary osteoarthritis, right hip; Z96.642 Presence of left artificial hip joint | CPT/HCPCS: 71046; 73522 ==

== ENCOUNTER 2020-11-05 09:26 | Outpatient (CLI) | payer MEDICARE, MEDICAID | END 2020-11-05 09:27 | disposition home or self-care (01) | LOC: BICRAD 09:26 | PROVIDERS: ATTEND Family Medicine | DX: M17.0 Bilateral primary osteoarthritis of knee (principal); R09.89 Other specified symptoms and signs involving the circulatory and respiratory systems | CPT/HCPCS: 36415; 80053; 80061; 82306; 84550; 85025; 85652 ==

== ENCOUNTER 2021-11-20 12:38 | Emergency (ER) | payer MEDICARE, OTHER | END 2021-11-20 15:00 | disposition home or self-care (01) | LOC: ERS 12:38 | DX: M62.838 Other muscle spasm (principal); M19.012 Primary osteoarthritis, left shoulder; E78.5 Hyperlipidemia, unspecified; K21.9 Gastro-esophageal reflux disease without esophagitis; I10 Essential (primary) hypertension ==

== ENCOUNTER 2023-03-24 10:34 | Outpatient (CLI) | payer OTHER | END 2023-03-24 10:35 | disposition home or self-care (01) | LOC: BICRAD 10:34 | PROVIDERS: ATTEND Student in an Organized Health Care Education/Training Program | DX: M19.011 Primary osteoarthritis, right shoulder (principal); M25.811 Other specified joint disorders, right shoulder ==

== ENCOUNTER 2023-07-22 00:20 | Observation (INO) | payer OTHER ==
[2023-07-22] MEDS ORDERED: Aspirin Chewable 81 MG TAB ONE ×2 (01:05→09:16)
[2023-07-22] MEDS ORDERED: Nitroglycerin 2% Ointment 1 INCH/1 GM Packet ONE (01:05)
[2023-07-22 01:57] LABS: #Eosinphils 0.1 thou/uL (0.0-0.7); #Monocytes 0.5 thou/uL (0.11-0.59); %Basophils 0.5 % (0.0-1.0); %Eosinophils 1.7 % (0.0-10.0); %Lymphocytes 51.5 % (21.0-51.0); %Monocytes 6.3 % (0.0-10.0); %Neutrophils 39.7 % (42.0-75.0); Hematocrit 38.2 % (36.0-47.0); Hemoglobin 12.1 g/dL (12.0-16.0); Mean Corpuscular HGB CONC 31.7 g/dL (32.0-36.0); Mean Corpuscular Hemoglobin 27.1 pg (27.0-31.0); Mean Corpuscular Volume 85.5 fl (78.0-98.0); Mean Platelet Volume 10.6 fL (7.4-10.4); Platelet Count 214 10x3/uL (130-400); RBC Distribution Width 16.4 % (11.5-14.5); Red Blood Cell (RBC) Count 4.47 mill/uL (4.20-5.40); White Blood Cell (WBC) Count 7.6 10x3/uL (4.8-10.8)
[2023-07-22 02:24] LABS: Troponin I Less than 0.010 ng/mL (< 0.028)
[2023-07-22 02:40] LABS: ALT (SGPT) 14 U/L (8-55); AST (SGOT) 27 U/L (5-34); Albumin 3.7 g/dL (3.4-4.8); Alkaline Phosphatase 83 U/L (40-110); Anion Gap 14 mmol/L (10-20); Bilirubin, Total 0.2 mg/dL (0.2-1.2); Calc. Creatinine Clearance 0 mL/min (70-130); Carbon Dioxide 23 mmol/L (23-31); Chloride 103 mmol/L (98-107); Estimated GFR 58; Globulin 3.8 g/dL (2.4-3.5); Glucose 101 mg/dL (83-110); Lipase 24 U/L (8-78); Potassium 3.9 mmol/L (3.5-5.1); Protein, Total 7.5 g/dL (5.8-8.1); Sodium 136 mmol/L (136-145)
[2023-07-22 02:48] LABS: BUN (Urea Nitrogen) 21 mg/dL (9.8-20.1)
[2023-07-22] MEDS ORDERED: Calcium Carbonate 500 MG ChewTAB PO PRN (04:29)
[2023-07-22] MEDS ORDERED: Ondansetron ODT 4 MG TAB PO PRN (04:29)
[2023-07-22] MEDS ORDERED: Enoxaparin 40 MG (0.4 mL) SYRINGE SC SCH (04:30)
[2023-07-22] MEDS ORDERED: Mag-Al 1200 mg/1200 mg/30 ML UDCUP PO PRN (04:33)
[2023-07-22] MEDS ORDERED: Nitroglycerin 0.4 MG TAB (25 Tab Bottle) SL PRN (04:39)
[2023-07-22] MEDS ORDERED: Albuterol 200 PUFF (6.7GM INHALER) INH PRN (04:40)
[2023-07-22 05:08] LABS: Troponin I 0.011 ng/mL (< 0.028)
[2023-07-22 06:23] LABS: Hemoglobin A1c 5.7 % (4.0-6.0)
[2023-07-22 07:56] LABS: Cardiac Risk 2.6 (Less than 4.5)
[2023-07-22 08:28] LABS: Troponin I Less than 0.010 ng/mL (< 0.028)
[2023-07-22] MEDS ORDERED: Furosemide 40 MG TAB ONE (09:15)
[2023-07-22] MEDS ORDERED: Acetaminophen 325 MG TAB ONE (09:15)
[2023-07-22] MEDS ORDERED: Enoxaparin 40 MG (0.4 mL) SYRINGE ONE (09:16)
[2023-07-22] MEDS ORDERED: Ibuprofen 200 MG TAB ONE (09:16)
[2023-07-22] MEDS ORDERED: Atorvastatin Calcium 10 MG TAB ONE (09:16)
[2023-07-22] MEDS ORDERED: Gabapentin 300 MG CAP ONE (09:17)
[2023-07-22] MEDS ORDERED: Losartan 25 MG TAB ONE (09:28)
[2023-07-22] MEDS: Atorvastatin Calcium 10 MG TAB PO SCH (09:38)
[2023-07-22] MEDS: Losartan 25 MG TAB PO SCH (09:38)
[2023-07-22] MEDS: Aspirin Chewable 81 MG TAB PO SCH (09:38)
[2023-07-22] MEDS: Gabapentin 300 MG CAP PO PRN (09:39)
[2023-07-22] MEDS: Furosemide 20 MG TAB PO SCH (09:39)
[2023-07-22] MEDS: Acetaminophen 325 MG TAB PO PRN (09:39)
[2023-07-22] MEDS: Ibuprofen 600 MG TAB PO PRN (09:40)
[2023-07-22] MEDS: Enoxaparin 40 MG (0.4 mL) SYRINGE SC SCH (09:43)
[2023-07-22] MEDS: Hydrochlorothiazide 25 MG TAB PO SCH (10:35)
[2023-07-22] MEDS: Allopurinol 100 MG TAB PO SCH (10:35)
[2023-07-22] MEDS ORDERED: Iopamidol 370 76% 100 ML VIAL ONE (11:37)
[2023-07-22] MEDS: Ipratropium/Albuterol 3 ML NEB NEB SCH (11:58)
[2023-07-22 12:28] LABS: SARS-CoV-2 NAA Rapid Test Not Detected (NotDetected)
[2023-07-22 21:05] VITALS: BMI 38.9
[2023-07-22] MEDS ORDERED: Polyethylene Glycol 3350 17 GM Packet PO PRN (22:56)
[2023-07-22] MEDS: Docusate 100 MG CAP PO PRN (23:55)
[2023-07-23] MEDS: Lidocaine 4% Patch TD SCH (00:19)
[2023-07-23 11:29] LABS: #Eosinphils 0.2 thou/uL (0.0-0.7); #Monocytes 0.6 thou/uL (0.11-0.59); #Neutrophils 3.1 thou/uL (1.40-6.50); %Basophils 0.5 % (0.0-1.0); %Eosinophils 2.1 % (0.0-10.0); %Monocytes 7.5 % (0.0-10.0); %Neutrophils 40.8 % (42.0-75.0); Hematocrit 37.8 % (36.0-47.0); Hemoglobin 12.1 g/dL (12.0-16.0); Mean Corpuscular Hemoglobin 26.7 pg (27.0-31.0); Mean Corpuscular Volume 83.4 fl (78.0-98.0); Mean Platelet Volume 10.4 fL (7.4-10.4); Platelet Count 254 10x3/uL (130-400); RBC Distribution Width 16.6 % (11.5-14.5); Red Blood Cell (RBC) Count 4.53 mill/uL (4.20-5.40); White Blood Cell (WBC) Count 7.6 10x3/uL (4.8-10.8)
[2023-07-23] MEDS: Transdermal Patch Removal TOP SCH (11:47)
[2023-07-23 11:52] LABS: Anion Gap 12 mmol/L (10-20); BUN (Urea Nitrogen) 19 mg/dL (9.8-20.1); Calc. Creatinine Clearance 59 mL/min (70-130); Calcium 9.2 mg/dL (7.8-10.44); Carbon Dioxide 27 mmol/L (23-31); Chloride 104 mmol/L (98-107); Estimated GFR 48; Glucose 94 mg/dL (83-110); Potassium 4.1 mmol/L (3.5-5.1); Sodium 139 mmol/L (136-145)
[2023-07-23] MEDS: Isosorbide Mononitrate 30 MG ER.TAB PO SCH (13:01)
[2023-07-23 16:22] VITALS: BP 164/75; TEMP 97.7
[2023-07-24] MEDS ORDERED: Isosorbide Mononitrate 30 MG ER.TAB PO SCH (09:00)
== END 2023-07-23 17:45 | disposition home or self-care (01) ==
LOC: ERS 00:20 → ERHOLD 03:23 → 2NO 19:27
PROVIDERS: ADMIT Family Medicine; ATTEND Family Medicine
PROC: B245ZZZ Ultrasonography of Left Heart (ICD-10-PCS; principal; 2023-07-23)
DX: R07.89 Other chest pain (principal); E11.9 Type 2 diabetes mellitus without complications; I10 Essential (primary) hypertension; E78.5 Hyperlipidemia, unspecified; M19.90 Unspecified osteoarthritis, unspecified site; K21.9 Gastro-esophageal reflux disease without esophagitis; J45.909 Unspecified asthma, uncomplicated; F41.9 Anxiety disorder, unspecified; E66.01 Morbid (severe) obesity due to excess calories; Z68.39 Body mass index [BMI] 39.0-39.9, adult; Z79.899 Other long term (current) drug therapy; Z90.49 Acquired absence of other specified parts of digestive tract; Z79.51 Long term (current) use of inhaled steroids
CPT/HCPCS: 0240U; 71045; 71275; 80048; 80061; 83036; 83690; 83880; 84484 ×2; 85025; 85379; 93005; 93306; 94640; 99285; 36415; 80053; 84443; 96372; G0378; J1650; J7620; Q9967

== ENCOUNTER 2025-04-18 18:53 | Emergency (ER) | payer OTHER ==
[2025-04-18 19:45] LABS: #Basophils Less than 0.03 10x3/uL (0.0-0.2); #Eosinophils Less than 0.03 10x3/uL (0.0-0.7); #Monocytes 0.34 10x3/uL (0.11-0.59); #Neutrophils 4.98 10x3/uL (1.40-6.50); %Basophils 0.2 % (0.0-1.0); %Eosinophils 0.0 % (0.0-10.0); %Lymphocytes 10.7 % (21.0-51.0); %Monocytes 5.7 % (0.0-10.0); %Neutrophils 83.1 % (42.0-75.0); Hematocrit 42.7 % (36.0-47.0); Hemoglobin 13.2 g/dL (12.0-16.0); Mean Corpuscular Hemoglobin 25.2 pg (27.0-31.0); Mean Corpuscular Volume 81.6 fL (78.0-98.0); Platelet Count 208 10x3/uL (130-400); Red Blood Cell (RBC) Count 5.23 mill/uL (4.20-5.40); White Blood Cell (WBC) Count 5.99 10x3/uL (4.8-10.8)
[2025-04-18 20:06] LABS: ALT (SGPT) 15 U/L (Less than 34); AST (SGOT) 36 U/L (11-34); Albumin 3.8 g/dL (3.1-4.5); Alkaline Phosphatase 90 U/L (40-110); Anion Gap 18 mmol/L (10-20); BUN (Urea Nitrogen) 24 mg/dL (9.8-20.1); Bilirubin, Total 1.0 mg/dL (0.3-1.2); Calc. Creatinine Clearance 0 mL/min (70-130); Calcium 9.2 mg/dL (7.8-10.44); Carbon Dioxide 22 mmol/L (23-31); Chloride 105 mmol/L (98-107); Globulin 4.3 g/dL (2.4-3.5); Glucose 114 mg/dL (83-110); Potassium 4.3 mmol/L (3.5-5.1); Sodium 141 mmol/L (136-145)
[2025-04-18] MEDS ORDERED: Losartan 25 MG TAB ONE (20:46)
[2025-04-18 21:42] LABS: Bacteria/HPF None Seen HPF (None Seen); CAUTI Indications for Culture Dysuria,urgency,freq; Glucose, Urine (Dipstick) Normal (Negative); Leukocyte Negative Leu/uL (Negative); Protein, Urine (Dipstick) Negative (Neg-Trace); RBC/HPF 0-3 HPF (0-3); Specific Gravity, Urine 1.033 (1.002-1.036); WBC/HPF 0-3 HPF (0-3)
[2025-04-18 21:45] LABS: Urine Culture Reflex No No
[2025-04-18] MEDS ORDERED: hydrALAZINE 20 MG/ML VIAL ONE (22:50)
== END 2025-04-18 23:25 | disposition home or self-care (01) ==
LOC: ERS 18:53
DX: I10 Essential (primary) hypertension (principal); Z79.899 Other long term (current) drug therapy
CPT/HCPCS: 71275; 81001; 83880; 84484; 85379; 93005; 93971; J0360; 80053; 84443; 85025; 96374